=== PATIENT | female | born 1950 | race Caucasian/White ===

== ENCOUNTER 2023-06-07 06:34 | Emergency (ER) | payer OTHER, MEDICARE ==
[~2023-06-07] VITALS: Ht 160 cm; Wt 57.6 kg
[~2023-06-07 06:34] MED LIST: IBUP-1969 PO; ONDA-8 TL; TRAM50TA2 PO
[2023-06-07 06:41] VITALS: BP_SYST 156; PULSE 105; RESP 18; TEMP 97.7; O2SAT 95
[2023-06-07 07:41] LABS: BASOPHILS % (AUTO) 0.3 % (0.0-2.0); EOSINOPHILS # (AUTO) 0.1 K/uL (0.0-0.4); EOSINOPHILS % (AUTO) 0.8 % (0.0-4.0); HEMATOCRIT 42.8 % (36-48); HEMOGLOBIN 14.1 g/dL (12.0-16.0); LYMPHOCYTES # (AUTO) 1.4 K/uL (1.0-5.5); MEAN CORPUSCULAR HEMOGLOBIN 30 pg (27-31); MEAN CORPUSCULAR HGB CONC 33 % (32-36); MEAN CORPUSCULAR VOLUME 91 fL (79.0-98.0); MONOCYTES # (AUTO) 0.6 K/uL (0.0-1.0); MONOCYTES % (AUTO) 7.5 % (1.7-9.3); NEUTROPHILS # (AUTO) 5.5 K/uL (1.8-7.7); NEUTROPHILS % (AUTO) 72.4 % (40.0-70.0); PLATELET COUNT (AUTO) 236 K/uL (130-430); RED BLOOD CELL COUNT(AUTO) 4.73 MIL/uL (4.2-6.2); RED CELL DISTRIBUTION WIDTH 13.4 % (9.0-15.0); WHITE BLOOD COUNT (AUTO) 7.6 K/uL (4.8-10.8)
[2023-06-07 08:13] LABS: ANION GAP 11 (5-15); CALCIUM 9.7 mg/dL (8.4-11.0); CARBON DIOXIDE 28 mmol/L (23-29); CHLORIDE 103 mmol/L (98-107); CREATININE 0.74 mg/dL (0.55-1.30); GLUCOSE 137 mg/dL (74-106); POTASSIUM 3.3 mmol/L (3.5-5.1); SODIUM SERUM 142 mmol/L (136-145); UREA NITROGEN, BLOOD 11 mg/dL (8-21)
[2023-06-07 08:14] LABS: ALANINE AMINOTRANSFERASE 54 U/L (12-78); ALBUMIN 4.4 g/dL (3.4-4.8); AMYLASE 102 U/L (0-100); ASPARTATE AMINOTRANSFERASE 43 U/L (10-37); LIPASE 160 U/L (73-393); TOTAL BILIRUBIN 0.6 mg/dL (0.0-1.0); TOTAL PROTEIN, SERUM 7.8 g/dL (6.4-8.3)
[2023-06-07 09:08] LABS: BILIRUBIN,URINE NEGATIVE (NEGATIVE); CLARITY/URINE Clear (CLEAR); GLUCOSE,URINE NEGATIVE (NEGATIVE); KETONES,URINE NEGATIVE (NEGATIVE); LEUKOCYTE ESTERASE ,URINE NEGATIVE (NEGATIVE); NITRITE, URINE NEGATIVE (NEGATIVE); PROTEIN URINE NEGATIVE (NEGATIVE); UROBILINOGEN,URINE 0.2 (0.2-1.0)
[2023-06-07 09:09] LABS: BLOOD, URINE TRACE (NEGATIVE); COLOR,URINE STRAW (YELLOW)
[2023-06-07 09:47] LABS: ACETONE, SERUM NEGATIVE (NEGATIVE)
[2023-06-07 09:56] VITALS: BP_SYST 126; PULSE 83; RESP 16; TEMP 97.7; O2SAT 95
== END 2023-06-07 09:56 | disposition home or self-care (01) ==
LOC: SED 06:34
DX: K80.50 Calculus of bile duct without cholangitis or cholecystitis without obstruction (principal); R10.30 Lower abdominal pain, unspecified; R11.0 Nausea; Z79.899 Other long term (current) drug therapy
CPT/HCPCS: 36415; 76376; 80053; 81003; 82009; 82150; 83605; 83690; 85025; 99284

== ENCOUNTER 2023-08-05 08:24 | Emergency (ER) | payer OTHER, MEDICARE ==
[~2023-08-05] VITALS: Ht 160 cm; Wt 49.9 kg
[2023-08-05 08:25] VITALS: BP_SYST 148; PULSE 95; RESP 19; TEMP 98.2; O2SAT 98
[2023-08-05 09:24] LABS: BASOPHILS % (AUTO) 0.5 % (0.0-2.0); EOSINOPHILS % (AUTO) 0.6 % (0.0-4.0); HEMATOCRIT 40.8 % (36-48); HEMOGLOBIN 13.6 g/dL (12.0-16.0); LYMPHOCYTES # (AUTO) 1.4 K/uL (1.0-5.5); LYMPHOCYTES % (AUTO) 20.5 % (20.5-51.5); MEAN CORPUSCULAR HEMOGLOBIN 30 pg (27-31); MEAN CORPUSCULAR HGB CONC 33 % (32-36); MEAN CORPUSCULAR VOLUME 89 fL (79.0-98.0); MONOCYTES # (AUTO) 0.8 K/uL (0.0-1.0); MONOCYTES % (AUTO) 11.3 % (1.7-9.3); NEUTROPHILS # (AUTO) 4.5 K/uL (1.8-7.7); NEUTROPHILS % (AUTO) 67.1 % (40.0-70.0); PLATELET COUNT (AUTO) 220 K/uL (130-430); RED BLOOD CELL COUNT(AUTO) 4.59 MIL/uL (4.2-6.2); RED CELL DISTRIBUTION WIDTH 13.3 % (9.0-15.0); WHITE BLOOD COUNT (AUTO) 6.7 K/uL (4.8-10.8)
[2023-08-05 09:31] LABS: ANION GAP 12 (5-15); CALCIUM 9.9 mg/dL (8.4-11.0); CARBON DIOXIDE 28 mmol/L (23-29); CHLORIDE 100 mmol/L (98-107); CREATININE 0.68 mg/dL (0.55-1.30); GLUCOSE 108 mg/dL (74-106); POTASSIUM 3.1 mmol/L (3.5-5.1); SODIUM SERUM 140 mmol/L (136-145); UREA NITROGEN, BLOOD 13 mg/dL (8-21)
[2023-08-05 09:34] LABS: PROTHROMBIN TIME 10.7 SECS (9.5-12.5)
[2023-08-05 09:35] LABS: ALANINE AMINOTRANSFERASE 38 U/L (12-78); ALBUMIN 4.3 g/dL (3.4-4.8); ASPARTATE AMINOTRANSFERASE 28 U/L (10-37); TOTAL BILIRUBIN 0.6 mg/dL (0.0-1.0); TOTAL PROTEIN, SERUM 7.8 g/dL (6.4-8.3)
[2023-08-05 09:43] LABS: FREE T4 (FREE THYROXINE) 1.2 ng/dL (0.6-1.6); LIPASE 61 U/L (16-77); THYROID STIMULATING HORMONE 2.76 uIu/mL (0.34-4.82)
[2023-08-05 09:44] LABS: ACETONE, SERUM NEGATIVE (NEGATIVE)
[2023-08-05] MEDS ORDERED: NACL 0.9% 1,000 ML IV ONE ×2 (10:30)
[2023-08-05 11:38] VITALS: BP_SYST 123; PULSE 75; RESP 20; TEMP 97.9; O2SAT 99
== END 2023-08-05 11:37 | disposition home or self-care (01) ==
LOC: SED 08:24
DX: R53.1 Weakness (principal); Z79.899 Other long term (current) drug therapy
CPT/HCPCS: 99285; 96360; 71045; 80053; 82009; 83880; 84439; 83690; 84443; 85025; 85610; 85730; 84484; 36415; 93005; 83605; J7030

== ENCOUNTER 2023-09-18 08:03 | Emergency (ER) | payer OTHER, MEDICARE ==
[~2023-09-18] VITALS: Ht 160 cm; Wt 47.6 kg
[2023-09-18 08:05] VITALS: BP_SYST 140; PULSE 89; RESP 17; TEMP 97.8; O2SAT 99
[2023-09-18] MEDS ORDERED: NACL 0.9% 1,000 ML IV ONE (08:30)
[2023-09-18 08:45] LABS: BASOPHILS % (AUTO) 0.6 % (0.0-2.0); EOSINOPHILS # (AUTO) 0.1 K/uL (0.0-0.4); HEMATOCRIT 36.3 % (36-48); HEMOGLOBIN 12.5 g/dL (12.0-16.0); LYMPHOCYTES # (AUTO) 1.2 K/uL (1.0-5.5); LYMPHOCYTES % (AUTO) 16.7 % (20.5-51.5); MEAN CORPUSCULAR HEMOGLOBIN 31 pg (27-31); MEAN CORPUSCULAR HGB CONC 35 % (32-36); MEAN CORPUSCULAR VOLUME 89 fL (79.0-98.0); MONOCYTES # (AUTO) 0.8 K/uL (0.0-1.0); MONOCYTES % (AUTO) 11.3 % (1.7-9.3); NEUTROPHILS # (AUTO) 5.1 K/uL (1.8-7.7); NEUTROPHILS % (AUTO) 70.4 % (40.0-70.0); PLATELET COUNT (AUTO) 235 K/uL (130-430); RED CELL DISTRIBUTION WIDTH 13.3 % (9.0-15.0); WHITE BLOOD COUNT (AUTO) 7.3 K/uL (4.8-10.8)
[2023-09-18 08:57] LABS: ANION GAP 9 (5-15); CALCIUM 9.6 mg/dL (8.4-11.0); CARBON DIOXIDE 29 mmol/L (23-29); CHLORIDE 105 mmol/L (98-107); CREATININE 0.66 mg/dL (0.55-1.30); GLUCOSE 112 mg/dL (74-106); POTASSIUM 3.2 mmol/L (3.5-5.1); SODIUM SERUM 143 mmol/L (136-145); UREA NITROGEN, BLOOD 13 mg/dL (8-21)
[2023-09-18 09:01] LABS: ALANINE AMINOTRANSFERASE 40 U/L (12-78); ALBUMIN 3.9 g/dL (3.4-4.8); ASPARTATE AMINOTRANSFERASE 32 U/L (10-37); BILIRUBIN,DIRECT 0.2 mg/dL (0.0-0.3); LIPASE 45 U/L (16-77); TOTAL BILIRUBIN 0.9 mg/dL (0.0-1.0); TOTAL PROTEIN, SERUM 7.1 g/dL (6.4-8.3)
[2023-09-18] MEDS ORDERED: POTASSIUM CHLORIDE 20 MEQ TABLET.ER PO ONE (09:30)
[2023-09-18 09:53] LABS: BILIRUBIN,URINE NEGATIVE (NEGATIVE); BLOOD, URINE NEGATIVE (NEGATIVE); CLARITY/URINE CLEAR (CLEAR); COLOR,URINE YELLOW (YELLOW); GLUCOSE,URINE NEGATIVE (NEGATIVE); KETONES,URINE NEGATIVE (NEGATIVE); LEUKOCYTE ESTERASE ,URINE NEGATIVE (NEGATIVE); NITRITE, URINE NEGATIVE (NEGATIVE); PH,URINE 7.5 (5.0-8.0); PROTEIN URINE NEGATIVE (NEGATIVE); UROBILINOGEN,URINE 0.2 (0.2-1.0)
[2023-09-18 11:44] VITALS: BP_SYST 127; PULSE 86; RESP 17; TEMP 97.4; O2SAT 98
== END 2023-09-18 11:42 | disposition home or self-care (01) ==
LOC: SED 08:03
DX: R53.83 Other fatigue (principal); E87.6 Hypokalemia; I10 Essential (primary) hypertension; Z79.899 Other long term (current) drug therapy
CPT/HCPCS: 99285; 74176; 96360; 80076; 80048; 81001; 83690; 85025; 36415; 76376; 81003; J7030